=== PATIENT | female | born 1985 | race Caucasian/White ===

== ENCOUNTER 2024-01-27 17:10 | Outpatient (CLI) | payer MEDICAID | END 2024-01-27 23:59 | disposition home or self-care (01) | LOC: RAD 17:10 | PROVIDERS: ATTEND Student in an Organized Health Care Education/Training Program | DX: M20.12 Hallux valgus (acquired), left foot (principal); M21.611 Bunion of right foot; M79.89 Other specified soft tissue disorders | CPT/HCPCS: 73630 ==

== ENCOUNTER 2024-02-05 14:42 | Emergency (ER) | payer MEDICAID ==
[~2024-02-05] VITALS: Ht 165.1 cm; Wt 78.5 kg
[2024-02-05 14:55] VITALS: TEMP 97.8
[2024-02-05 15:25] LABS: BASOPHILS # (AUTO) 0.1 X10'3 (0-0.2); BASOPHILS % (AUTO) 0.4 % (0-1); EOSINOPHILS # (AUTO) 0.2 X10'3 (0-0.9); EOSINOPHILS % (AUTO) 1.5 % (0-6); HEMATOCRIT 36.4 % (35.0-45.0); LYMPHOCYTES # (AUTO) 2.7 X10'3 (1.1-4.8); MEAN CORPUSCULAR HEMOGLOBIN 30.5 PG (27.0-31.0); MEAN CORPUSCULAR VOLUME 92.4 FL (78-98); MEAN PLATELET VOLUME 7.8 FL (7.4-10.4); MONOCYTES # (AUTO) 0.6 X10'3 (0-0.9); MONOCYTES % (AUTO) 4.9 % (2-12); NEUTROPHILS # (AUTO) 9.2 X10'3 (1.8-7.7); NEUTROPHILS % (AUTO) 72.2 % (42-75); PLATELET COUNT 304 X10'3 (140-440); RED BLOOD COUNT 3.94 X10'6 (4.20-5.60); RED CELL DISTRIBUTION WIDTH 14.9 % (11.5-14.5); WHITE BLOOD COUNT 12.8 X10'3 (4.5-11.0)
[2024-02-05 15:33] LABS: URINE HCG NEGATIVE (NEG)
[2024-02-05 15:37] LABS: ALANINE AMINOTRANSFERASE 37 U/L (12-78); ALBUMIN/GLOBULIN RATIO 1.1 (1.1-1.5); ALKALINE PHOSPHATASE 56 IU/L (46-116); ANION GAP 11 (8-16); ASPARTATE AMINO TRANSFERASE 25 U/L (10-37); BILIRUBIN,TOTAL 0.8 MG/DL (0.1-1.0); BLOOD UREA NITROGEN 10 MG/DL (7-18); BUN/CREATININE RATIO 11.4 (10.0-20.0); CALCIUM 9.4 MG/DL (8.5-10.1); CHLORIDE 104 MMOL/L (99-107); CREATININE 0.88 MG/DL (0.40-0.90); GLUCOSE 99 MG/DL (70-104); POTASSIUM 3.8 MMOL/L (3.5-5.1); SODIUM 141 MMOL/L (135-145); TOTAL CARBON DIOXIDE 26.2 MMOL/L (24-32); TOTAL PROTEIN 7.8 G/DL (6.4-8.2); eCRCL 80 ML/MIN; eGFR 73 ML/MIN
[2024-02-05 15:39] LABS: BILIRUBIN,URINE NEGATIVE (Neg); CLARITY,URINE SLIGHTLY CLOUDY (Clear); COLOR,URINE YELLOW (Yellow); GLUCOSE, URINE NEGATIVE (Neg); KETONES,URINE NEGATIVE (Neg); LEUKOCYTE ESTERASE ,URINE NEGATIVE (Neg); NITRITES, URINE NEGATIVE (Neg); OCCULT BLOOD,URINE NEGATIVE (Neg); PH,URINE 5.5 (4.8-8.0); PROTEIN,URINE NEGATIVE (Neg); UROBILINOGEN,URINE 0.2 E.U/dL (0.2-1.0)
[2024-02-05 15:42] LABS: UA COLLECTION TYPE CLN CATCH MIDSTREAM
[2024-02-05 15:48] LABS: LIPASE 26 U/L (16-77); PRO BRAIN NATRIURETIC PEPTIDE < 30 PG/ML (0-125)
[2024-02-05 15:51] LABS: MUCUS STRANDS FEW /LPF (Neg); SQUAMOUS EPITHELIAL CELL,UR MODERATE /LPF (FEW)
[2024-02-05 15:52] LABS: BACTERIA,URINE 1+ /HPF (Neg); HYALINE CASTS 0-3 /LPF (NEGATIVE); RBC,URINE 0-2 /HPF (0-2); SPERM FEW /HPF; WBC,URINE 0-4 /HPF (0-4)
[2024-02-05] MEDS ORDERED: TIOT18CA3 PO (16:37)
[2024-02-05] MEDS ORDERED: FURO20TA4 PO (16:37)
[2024-02-05] MEDS ORDERED: BUPR1FIL20 SL (16:37)
[2024-02-05] MEDS ORDERED: BACL10TA2 PO (16:37)
[2024-02-05] MEDS ORDERED: FLUT12AE5 INH (16:37)
[2024-02-05] MEDS ORDERED: SEMA2PEN SQVAC (16:37)
[2024-02-05] MEDS ORDERED: POTA8TAB69 PO (16:55)
[2024-02-05] MEDS ORDERED: FLUT1BLS25 INH (16:55)
[2024-02-05] MEDS ORDERED: GABA-535 PO (16:55)
[2024-02-05] MEDS ORDERED: ALBU18HF2 (16:55)
[2024-02-05] MEDS ORDERED: ESCI-8 PO (16:55)
[2024-02-05] MEDS ORDERED: MIRT7.5T11 PO (16:55)
[2024-02-05] MEDS ORDERED: BUSP5TAB3 PO (16:55)
[2024-02-05] MEDS: normal saline 1000ML IV soln IVB ONE (17:12)
[2024-02-05 17:22] VITALS: BP 112/80; PULSE 98; RESP 16; O2SAT 95
== END 2024-02-05 17:25 | disposition home or self-care (01) ==
LOC: ER 14:43
DX: R07.89 Other chest pain (principal); R20.0 Anesthesia of skin; R01.1 Cardiac murmur, unspecified; G90.A Postural orthostatic tachycardia syndrome [POTS]; Z88.6 Allergy status to analgesic agent; Z79.899 Other long term (current) drug therapy
CPT/HCPCS: 36415; 80053; 81001; 81025; 83690; 83880; 84484; 85025; 93005; 99284; J7030

== ENCOUNTER 2025-07-06 12:37 | Outpatient (CLI) | payer MEDICAID ==
[~2025-07-06 12:37] MED LIST: ALBU18HF2; BACL10TA2 PO; BUPR1FIL20 SL; BUSP5TAB3 PO; ESCI-8 PO; FLUT12AE5 INH; FLUT1BLS25 INH; FURO20TA4 PO; GABA-535 PO; MIRT7.5T11 PO; POTA8TAB69 PO; SEMA2PEN SQVAC; TIOT18CA3 PO
[2025-07-06] MEDS ORDERED: GADOTERATE MEGLUMINE 7.5 MMOL/15 ML VIAL IV ONE (16:55)
--- NOTE | 2025-07-07 10:53 | RADIOLOGY REPORT ---
CLINICAL HISTORY: Pain in right foot. Instability in right foot. TECHNIQUE: Multi sequence multi planar MRI images of the right ankle were obtained prior to and after the uneventful administration of 15 mL Clariscan contrast. COMPARISON: DI FOOT, COMPLETE (3VW MIN) on DOS: 01/27/24, DI FOOT, COMPLETE (3VW MIN) on DOS: 01/27/24 FINDINGS: There is motion artifact and loss of signal artifact limiting evaluation. The axial PD fat saturated sequence and coronal IR sequence are nondiagnostic due to extensive artifact. 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 Artifact from the surgical hardware limits evaluation of adjacent structures. No definite marrow signal abnormality identified in the calcaneus or talus given the limitations of the examination. There is bone graft harvest site in the distal tibia. Partially visualized postsurgical changes at the midfoot involving the 1st and 2nd tarsometatarsal joints with associated artifact, which limits evaluation of adjacent structures. No visualized marrow signal abnormality in the midfoot or in the rest of the visualized osseous structures. There is a moderate tibiotalar joint effusion. No peripherally enhancing fluid collection identified to suggest abscess. Nonspecific subcutaneous edema and enhancement is seen around the ankle, most prominent laterally near the lateral malleolus, may be partly due to sequelae of recent postoperative changes. Superimposed infection/ cellulitis can not be completely excluded. There are postsurgical changes at the lateral malleolus and along the expected course of the anterior talofibular ligament, from prior ligament repair. There are indistinctness of the ligament fibers throughout the course of the ATFL, likely sequelae of recent postsurgical changes. There is mild peroneal tenosynovitis. Tibialis posterior, flexor hallucis longus, and flexor digitorum longus tendons are intact. Tibialis anterior, extensor hallucis longus, and extensor digitorum longus tendons appear grossly intact. Mild Achilles tendinosis. No tear. IMPRESSION: 1. Very limited examination due to artifact as described above. Some sequences are essentially nondiagnostic. 2. Subcutaneous edema and enhancement around the ankle, may be residual sequelae of recent postsurgical changes. Superimposed infection can not be excluded. No peripherally enhancing collection is identified to suggest abscess. Correlate with clinical findings. 3. No definite marrow signal abnormality identified to suggest osteomyelitis given the limitations of the examination. 4. Moderate tibiotalar joint effusion. 5. Postsurgical changes as detailed above. 6. Mild peroneal tenosynovitis.
== END 2025-07-06 23:59 | disposition home or self-care (01) ==
LOC: MRI 12:37
PROVIDERS: ATTEND Podiatrist Foot & Ankle Surgery
DX: M76.61 Achilles tendinitis, right leg (principal); M79.671 Pain in right foot; M25.374 Other instability, right foot; M21.41 Flat foot [pes planus] (acquired), right foot; R60.0 Localized edema; M65.871 Other synovitis and tenosynovitis, right ankle and foot; M25.474 Effusion, right foot
CPT/HCPCS: 73722; A9575